=== PATIENT | male | born 1995 | race Caucasian/White ===

== ENCOUNTER 2018-05-27 22:48 | Emergency (ER) | payer OTHER, SELFPAY ==
[~2018-05-27] VITALS: Ht 179.1 cm; Wt 100.0 kg
[2018-05-27] MEDS ORDERED: DOXY100C43 PO (23:13)
[2018-05-28 00:35] VITALS: BP 123/61
== END 2018-05-28 00:39 | disposition home or self-care (01) ==
LOC: ER 22:48
DX: S61.412A Laceration without foreign body of left hand, initial encounter (principal); Z88.1 Allergy status to other antibiotic agents; Z88.8 Allergy status to other drugs, medicaments and biological substances; Z79.899 Other long term (current) drug therapy; W26.0XXA Contact with knife, initial encounter; Y93.89 Activity, other specified; Y92.89 Other specified places as the place of occurrence of the external cause; Y99.8 Other external cause status
CPT/HCPCS: 12001; 99283

== ENCOUNTER 2021-12-13 00:02 | Inpatient (IN) | payer OTHER ==
[~2021-12-13] VITALS: Ht 177.8 cm; Wt 100.0 kg
[2021-12-13] MEDS ORDERED: HYDROcodone/acetaminophen 10/325mg tab PO ONE (00:40)
[2021-12-13] MEDS ORDERED: LIDOcaine 1% W/epiNEPHrine 1:100,000 20ml vial SQ ONE (00:40)
[2021-12-13] MEDS ORDERED: LIDOcaine 1% w/EPI 1:100,000 30ml vial (MDV) IJ ONE (00:45)
[2021-12-13] MEDS ORDERED: ceFAZolin/D5W- 1GM premix 50 ML IV SCH (02:48)
[2021-12-13] MEDS ORDERED: TETanus/Pertussis (Acell)/Diphther VAC/PF (Tdap-Adult) 0.5ml syringe IMVAC ONE (02:50)
[2021-12-13] MEDS ORDERED: potassium CL 10mEq/100ml bag 100 ML IV PRN (03:15)
[2021-12-13] MEDS ORDERED: magnesium 2GM in 50ml NS 50 ML IV PRN (03:15)
[2021-12-13] MEDS ORDERED: normal saline 1000ml 1,000 ML IV SCH (03:15)
[2021-12-13] MEDS ORDERED: ondansetron/PF 4mg/2ml inj IV PRN (03:15)
[2021-12-13] MEDS ORDERED: POTASSIUM BICARB 20meq eff tab 20 MEQ TABLET.EFF PO PRN ×2 (03:15)
[2021-12-13] MEDS ORDERED: HYDROcodone/acetaminophen 5mg/325mg tablet PO PRN (03:15)
[2021-12-13] MEDS ORDERED: magnesium Cl slow-release 64mg tablet PO PRN (03:15)
[2021-12-13] MEDS ORDERED: acetaminophen 325mg tablet PO PRN (03:15)
[2021-12-13] MEDS ORDERED: magnesium 4gm in 100ml NS 100 ML IV PRN (03:15)
[2021-12-13] MEDS ORDERED: vancomycin/NS 1 GM ADD-VANTAGE 250 ML IV ONE (03:35)
--- NOTE | 2021-12-13 03:46 | NUR ---
Pt came in after "jumping off a roof" and scraping up left knee. Large open wound on left knee and superficial right hand wound. MD began to preform suture repair but noticed dirt throughout tissue as well as what appeared to be shreaded tendon. Ortho consulted. Plan to admit pt for surgical repair. Discussed with pt, all questions answered. Pt started on IV abx and recived tetnus vaccine, information given, all questions answered.
[2021-12-13 06:07] LABS: ANION GAP 7 (8-16); BLOOD UREA NITROGEN 8 MG/DL (7-18); BUN/CREATININE RATIO 8.4 (5.4-32.0); CALCIUM 8.4 MG/DL (8.5-10.1); CHLORIDE 105 MMOL/L (99-107); CREATININE 0.95 MG/DL (0.60-1.10); GLUCOSE 110 MG/DL (70-104); POTASSIUM 3.9 MMOL/L (3.5-5.1); SODIUM 139 MMOL/L (135-145); TOTAL CARBON DIOXIDE 26.6 MMOL/L (24-32); eGFR > 90 ML/MIN
[2021-12-13] MEDS ORDERED: LIDOcaine 1% w/EPI 1:100,000 30ml vial (MDV) SQ ONE (06:30)
[2021-12-13] MEDS ORDERED: CEPH-585 PO (07:25)
[2021-12-13] MEDS ORDERED: ACET-3068 PO (07:39)
[2021-12-13 07:41] VITALS: BP 132/78
[2021-12-13] MEDS ORDERED: K and/or MAG REPLACEMENT MC SCH (08:00)
== END 2021-12-13 07:59 | disposition home or self-care (01) | DRG 605 ==
LOC: ER 00:03 → ED HOLD 03:20
PROVIDERS: ADMIT Internal Medicine; ATTEND Internal Medicine
PROC: 0HQLXZZ Repair Left Lower Leg Skin, External Approach (ICD-10-PCS; principal; 2021-12-13)
PROC: 3E0234Z Introduction of Serum, Toxoid and Vaccine into Muscle, Percutaneous Approach (ICD-10-PCS; 2021-12-13)
DX: S81.012A Laceration without foreign body, left knee, initial encounter (principal); G40.909 Epilepsy, unspecified, not intractable, without status epilepticus; F17.200 Nicotine dependence, unspecified, uncomplicated; S89.92XA Unspecified injury of left lower leg, initial encounter; W13.2XXA Fall from, out of or through roof, initial encounter; S60.511A Abrasion of right hand, initial encounter; Y93.39 Activity, other involving climbing, rappelling and jumping off; Z23 Encounter for immunization; Y92.89 Other specified places as the place of occurrence of the external cause; Y99.8 Other external cause status; Z88.1 Allergy status to other antibiotic agents; Z88.8 Allergy status to other drugs, medicaments and biological substances; Z79.899 Other long term (current) drug therapy
CPT/HCPCS: 36415; 72170; 73564; 80048; 83735; 90715; 99285; A6223; A6253; A6258; A6402; A6446; A6449; G0378; J0690; J3370; J3490; J7030

== ENCOUNTER 2023-11-05 08:19 | Emergency (ER) | payer SELFPAY ==
[~2023-11-05] VITALS: Ht 177.8 cm; Wt 95.7 kg
[2023-11-05 08:20] VITALS: TEMP 98
[2023-11-05] MEDS ORDERED: NAPR-56 PO (09:25)
[2023-11-05] MEDS: naproxen 500mg tablet PO ONE (09:26)
[2023-11-05] MEDS: HYDROcodone/acetaminophen 10/325mg tab PO ONE (09:26)
[2023-11-05] MEDS ORDERED: HYDR-3965 PO (09:26)
[2023-11-05 09:58] VITALS: BP 138/56; PULSE 82; RESP 18; O2SAT 99
== END 2023-11-05 09:58 | disposition home or self-care (01) ==
LOC: ER 08:20
DX: S52.122A Displaced fracture of head of left radius, initial encounter for closed fracture (principal); S50.312A Abrasion of left elbow, initial encounter; Z88.1 Allergy status to other antibiotic agents; Z88.8 Allergy status to other drugs, medicaments and biological substances; V29.99XA Rider (driver) (passenger) of other motorcycle injured in unspecified traffic accident, initial encounter; Y93.89 Activity, other specified; Y92.89 Other specified places as the place of occurrence of the external cause; Y99.8 Other external cause status
CPT/HCPCS: 29105; 73080; 73090; 73110; 99284; A4565; A6449